=== PATIENT | female | born 1985 | race Caucasian/White ===

== ENCOUNTER → 2020-08-28 | Outpatient (CLI) | payer BC, OTHER ==
[2020-08-28 18:04] LABS: RED BLOOD COUNT 4.31 M/UL (4.00-5.10); WHITE BLOOD COUNT 7.7 K/UL (4.5-11.0)
[2020-08-28 18:06] LABS: BUN/CREATININE RATIO 14 (0-10)
[2020-08-30 07:11] LABS: VITAMIN D, 25-HYDROXY 42.4 ng/mL (30.0-100.0)
== END ==
LOC: LAB 17:19
PROVIDERS: Internal Medicine
DX: Z51.81 Encounter for therapeutic drug level monitoring (principal); Z79.899 Other long term (current) drug therapy; E03.9 Hypothyroidism, unspecified; R76.8 Other specified abnormal immunological findings in serum; M79.7 Fibromyalgia; M05.79 Rheumatoid arthritis with rheumatoid factor of multiple sites without organ or systems involvement; E55.9 Vitamin D deficiency, unspecified
CPT/HCPCS: 36415; 80053; 82728; 84439; 84443; 85025; 85652; 86140

== ENCOUNTER → 2021-01-13 | Outpatient (CLI) | payer BC, OTHER | LOC: EXRD 13:41 | DX: R06.00 Dyspnea, unspecified (principal); U09.9 Post COVID-19 condition, unspecified; R91.8 Other nonspecific abnormal finding of lung field | CPT/HCPCS: 71046 ==

== ENCOUNTER 2021-09-04 11:34 | Outpatient (CLI) | payer BC | END 2021-09-04 13:56 | disposition home or self-care (01) | LOC: GENOP 11:34 | DX: O99.891 Other specified diseases and conditions complicating pregnancy (principal); M54.9 Dorsalgia, unspecified; O99.282 Endocrine, nutritional and metabolic diseases complicating pregnancy, second trimester; E03.9 Hypothyroidism, unspecified; Z3A.24 24 weeks gestation of pregnancy | CPT/HCPCS: 81001; G0463 ==

== ENCOUNTER 2021-12-11 13:32 | Outpatient (CLI) | payer BC ==
[2021-12-11 14:12] LABS: HEMOGLOBIN 13.1 gm/dl (12.3-15.3); RED BLOOD COUNT 4.49 M/UL (4.00-5.10); WHITE BLOOD COUNT 10.3 K/UL (4.5-11.0)
[2021-12-12] MEDS ORDERED: IBUPROFEN600 MG PO (08:08)
[2021-12-12] MEDS ORDERED: HYDROCODON-ACE1 EAC4 PO (08:08)
[2021-12-12] MEDS ORDERED: DOCUSATE SODIU100 MG PO (08:08)
[2021-12-12] MEDS ORDERED: SYNTHROID88 MCG PO (12:41)
[2021-12-12] MEDS ORDERED: HYDROXYCHLOROQ400 MG PO (12:42)
[2021-12-12] MEDS ORDERED: VITAMIN D-40010 MCG PO (12:43)
[2021-12-12] MEDS ORDERED: FOLIC ACID 1 MG1 MG PO (12:50)
[2021-12-12] MEDS ORDERED: VITAMIN C1000 MG PO (12:51)
[2021-12-12] MEDS ORDERED: VITAMIN D3125 MCG PO (12:51)
[2021-12-12] MEDS ORDERED: PEPCID20 MG PO (12:53)
[2021-12-12] MEDS ORDERED: FERROUS SULFAT325 M2 PO (12:53)
[2021-12-12] MEDS ORDERED: PRENATAL MULTI1 EAC4 PO (12:53)
== END 2021-12-11 14:38 | disposition home or self-care (01) ==
LOC: GENOP 13:32
PROVIDERS: Obstetrics & Gynecology
DX: Z01.812 Encounter for preprocedural laboratory examination (principal)
CPT/HCPCS: 81001; 85025

== ENCOUNTER 2021-12-12 05:38 | Inpatient (IN) | payer BC ==
[~2021-12-12] VITALS: Ht 160 cm; Wt 93.4 kg
[2021-12-12] MEDS ORDERED: IBUPROFEN600 MG PO (08:08)
[2021-12-12] MEDS ORDERED: DOCUSATE SODIU100 MG PO (08:08)
[2021-12-12] MEDS ORDERED: HYDROCODON-ACE1 EAC4 PO (08:08)
[2021-12-12] MEDS ORDERED: SYNTHROID88 MCG PO (12:41)
[2021-12-12] MEDS ORDERED: HYDROXYCHLOROQ400 MG PO (12:42)
[2021-12-12] MEDS ORDERED: VITAMIN D-40010 MCG PO (12:43)
[2021-12-12] MEDS ORDERED: FOLIC ACID 1 MG1 MG PO (12:50)
[2021-12-12] MEDS ORDERED: VITAMIN C1000 MG PO (12:51)
[2021-12-12] MEDS ORDERED: VITAMIN D3125 MCG PO (12:51)
[2021-12-12] MEDS ORDERED: PEPCID20 MG PO (12:53)
[2021-12-12] MEDS ORDERED: PRENATAL MULTI1 EAC4 PO (12:53)
[2021-12-12] MEDS ORDERED: FERROUS SULFAT325 M2 PO (12:53)
[2021-12-13 06:02] LABS: HEMOGLOBIN 12.8 gm/dl (12.3-15.3)
== END 2021-12-14 16:01 | disposition home or self-care (01) | DRG 788 ==
LOC: OB 05:38
PROVIDERS: ADMIT Obstetrics & Gynecology
PROC: 4A1HXCZ Monitoring of Products of Conception, Cardiac Rate, External Approach (ICD-10-PCS; 2021-12-12)
PROC: 10D00Z1 Extraction of Products of Conception, Low, Open Approach (ICD-10-PCS; principal; 2021-12-12 07:30)
DX: O34.211 Maternal care for low transverse scar from previous cesarean delivery (principal); Z3A.39 39 weeks gestation of pregnancy; Z37.0 Single live birth; O99.284 Endocrine, nutritional and metabolic diseases complicating childbirth; E03.9 Hypothyroidism, unspecified; M06.9 Rheumatoid arthritis, unspecified; M32.9 Systemic lupus erythematosus, unspecified; O99.892 Other specified diseases and conditions complicating childbirth; O99.62 Diseases of the digestive system complicating childbirth; K66.0 Peritoneal adhesions (postprocedural) (postinfection); Z88.8 Allergy status to other drugs, medicaments and biological substances; M35.00 Sjogren syndrome, unspecified; Z28.310 Unvaccinated for COVID-19; Z83.3 Family history of diabetes mellitus; Z82.49 Family history of ischemic heart disease and other diseases of the circulatory system; Z82.5 Family history of asthma and other chronic lower respiratory diseases
CPT/HCPCS: 36415; 82800; 85014; 85018; C9113; J0690; J1170; J2300; J2370; J2405; J2590; J2704